=== PATIENT | male | born 1970 | race Caucasian/White ===

== ENCOUNTER 2018-09-30 16:05 | Emergency (ER) | payer OTHER, MEDICAID ==
[~2018-09-30] VITALS: Ht 175.2 cm; Wt 104.3 kg
[~2018-09-30 16:05] MED LIST: ABILIFY20 MG PO; AVPAK AZITHROM250 M1 PO; DELTASONE20 M1 PO; FLEXERIL10 MG PO; INDOMETHACIN50 MG PO; MEDROL DOSEPAK4 MG PO; MOTRIN800 MG PO; PREDNICOT20 MG PO; PROZAC20 MG PO; VICODIN 5/500 505 MG PO
== END 2018-09-30 18:29 | disposition home or self-care (01) ==
LOC: ED 16:05
DX: S01.01XA Laceration without foreign body of scalp, initial encounter (principal); M54.2 Cervicalgia; Z79.899 Other long term (current) drug therapy; Z79.2 Long term (current) use of antibiotics; W17.81XA Fall down embankment (hill), initial encounter; Y93.01 Activity, walking, marching and hiking; Y92.828 Other wilderness area as the place of occurrence of the external cause; Y99.8 Other external cause status

== ENCOUNTER 2021-01-11 05:20 | Emergency (ER) | payer OTHER, MEDICAID ==
[~2021-01-11] VITALS: Ht 175.2 cm; Wt 125.4 kg
== END 2021-01-11 06:07 | disposition home or self-care (01) ==
LOC: ED 05:20
DX: M10.9 Gout, unspecified (principal); Z79.899 Other long term (current) drug therapy

== ENCOUNTER 2021-03-02 23:38 | Emergency (ER) | payer OTHER, MEDICAID ==
[~2021-03-02] VITALS: Ht 175.2 cm; Wt 117.9 kg
[2021-03-02] MEDS ORDERED: PENICILLIN VK500 MG PO (23:52)
== END 2021-03-03 00:30 | disposition home or self-care (01) ==
LOC: ED 23:38
DX: K02.9 Dental caries, unspecified (principal); Z79.899 Other long term (current) drug therapy

== ENCOUNTER → 2022-12-18 | Day surgery (SDC) | payer OTHER, MEDICAID ==
[~2022-12-18] VITALS: Ht 175.2 cm; Wt 99.8 kg
[~2022-12-18] MED LIST changes: +ATORVASTATIN CA40 M1 PO; +PENICILLIN VK500 MG PO; +ZESTRIL20 MG PO
[2022-12-18 07:00] VITALS: BP 124/69
[2022-12-18 08:45] VITALS: BP 116/88
[2022-12-18 09:00] VITALS: BP 124/61
[2022-12-18 09:15] VITALS: BP 128/71
== END | disposition home or self-care (01) ==
LOC: SDC 12-14 12:30
PROVIDERS: ATTEND Surgery
DX: Z12.11 Encounter for screening for malignant neoplasm of colon (principal); D12.5 Benign neoplasm of sigmoid colon; I10 Essential (primary) hypertension; F32.A Depression, unspecified; M10.9 Gout, unspecified; F41.9 Anxiety disorder, unspecified; E78.00 Pure hypercholesterolemia, unspecified; Z79.899 Other long term (current) drug therapy

== ENCOUNTER 2023-10-16 14:23 | Emergency (ER) | payer OTHER, MEDICAID ==
[~2023-10-16] VITALS: Ht 175.2 cm; Wt 95.3 kg
[2023-10-16] MEDS ORDERED: VIBRA-TAB100 MG PO (14:54)
[2023-10-16] MEDS ORDERED: Doxycycline Hyclate 100 MG CAP PO ONE (14:55)
== END 2023-10-16 15:10 | disposition home or self-care (01) ==
LOC: ED 14:23
DX: L03.114 Cellulitis of left upper limb (principal); F32.A Depression, unspecified; I10 Essential (primary) hypertension; E78.5 Hyperlipidemia, unspecified; F41.9 Anxiety disorder, unspecified; M10.9 Gout, unspecified; Z98.890 Other specified postprocedural states

== ENCOUNTER → 2023-10-25 | Outpatient (CLI) | payer OTHER, MEDICAID ==
[~2023-10-25] MED LIST changes: +VIBRA-TAB100 MG PO
== END | disposition home or self-care (01) ==
LOC: RAD 11:56
PROVIDERS: ATTEND Internal Medicine Nephrology
DX: M19.032 Primary osteoarthritis, left wrist (principal); M25.832 Other specified joint disorders, left wrist

== ENCOUNTER 2025-02-21 12:10 | Emergency (ER) | payer OTHER, MEDICAID ==
[~2025-02-21] VITALS: Ht 175.2 cm; Wt 92.1 kg
[2025-02-21] MEDS ORDERED: NAPROSYN500 MG PO (12:28)
[2025-02-21] MEDS ORDERED: PREDNISONE20 M1 PO (12:28)
== END 2025-02-21 12:41 | disposition home or self-care (01) ==
LOC: ED 12:10
DX: M10.031 Idiopathic gout, right wrist (principal)